=== PATIENT | male | born 2000 | race Two or more races ===

== ENCOUNTER 2022-12-26 01:58 | Emergency (ER) | payer BC, OTHER ==
[~2022-12-26] VITALS: Ht 172.7 cm; Wt 57.1 kg
[2022-12-26 02:17] VITALS: BP 119/48; PULSE 66; RESP 16; O2SAT 100
[2022-12-26] MEDS ORDERED: ACYC1TAB3 PO (08:55)
[2022-12-26] MEDS ORDERED: TRIA0.02 TOP (08:55)
[2022-12-26] MEDS ORDERED: IBUP-1454 PO (08:55)
== END 2022-12-26 06:28 | disposition left against medical advice (07) ==
LOC: ER 01:58
DX: S60.561A Insect bite (nonvenomous) of right hand, initial encounter (principal); R21 Rash and other nonspecific skin eruption; Z53.21 Procedure and treatment not carried out due to patient leaving prior to being seen by health care provider; W57.XXXA Bitten or stung by nonvenomous insect and other nonvenomous arthropods, initial encounter; Y93.89 Activity, other specified; Y92.89 Other specified places as the place of occurrence of the external cause; Y99.8 Other external cause status

== ENCOUNTER 2022-12-26 08:29 | Emergency (ER) | payer BC ==
[~2022-12-26] VITALS: Ht 172.7 cm; Wt 58.0 kg
[2022-12-26 08:42] VITALS: BP 121/66; PULSE 58; RESP 18; TEMP 96.8; O2SAT 98
[2022-12-26] MEDS ORDERED: ACYC1TAB3 PO (08:55)
[2022-12-26] MEDS ORDERED: IBUP-1454 PO (08:55)
[2022-12-26] MEDS ORDERED: TRIA0.02 TOP (08:55)
== END 2022-12-26 09:06 | disposition home or self-care (01) ==
LOC: ER 08:29
DX: B02.9 Zoster without complications (principal); Z79.899 Other long term (current) drug therapy